=== PATIENT | male | born 1970 | race Caucasian/White ===

== ENCOUNTER 2016-10-13 18:50 | Emergency (ER) | payer MEDICAID ==
[~2016-10-13] VITALS: Ht 162.6 cm; Wt 55.0 kg
[2016-10-13 18:53] VITALS: Ht 162.6 cm; Wt 55.0 kg
--- NOTE | 2016-10-13 20:29 | ERD ---
ER Documentation Chief Complaint Date/Time DATE: 10/13/16 TIME: 20:21 Chief Complaint ABD pain and diarrhea since yesterday HPI This pleasant 46-year-old male patient presents to emergency department today with 1 day history of diarrhea and abdominal pain. Diarrhea 15, patient reports abdominal pain is around his umbilical cord. Reports cramping and vomiting 1. Patient states symptoms started yesterday after eating out for a local. States that he ate by himself is unaware of anybody else has been sick. Patient denies fever, chills, blood in stool. Hematuria, or back pain. Patient states he has been able to tolerate fluids, has no appetite. ROS All systems reviewed and are negative except as per history of present illness. Medications Home Meds Active Scripts Ranitidine Hcl* (Zantac*) 150 Mg Tablet, 150 MG PO BID Y for EPIGASTRIC PAIN, # 30 TAB Prov:MEGHANN,REJI 10/13/16 Loperamide Hcl* (Imodium*) 2 Mg Capsule, 2 MG PO .AFTER EA LOOSE BM Y for DIARRHEA, #10 TAB Prov:MEGHANN,REJI 10/13/16 PMhx/Soc History of Surgery: No Anesthesia Reaction: No Hx Neurological Disorder: No Hx Respiratory Disorders: No Hx Cardiac Disorders: No Hx Psychiatric Problems: No Hx Miscellaneous Medical Probl: No (DENIES MEDICAL AND SURGICAL HX) Hx Alcohol Use: Yes Hx Substance Use: No Hx Tobacco Use: No Smoking Status: Never smoker Physical Exam Vitals Vital Signs Date Time Temp Pulse Resp B/P Pulse Ox O2 Delivery O2 Flow Rate FiO2 10/13/16 18:53 100.2 99 18 122/73 100 Vitals stable, triage notes reviewed Physical Exam Const: No acute distress Head: Atraumatic Eyes: Normal Conjunctiva, no jaundice, PERRLA, EOMI ENT: Normal External Ears, Nose and Mouth. Mucous membranes moist Neck: Resp: Cardio: Abd: Abdomen symmetric, soft, periumbilical tenderness, Guzman sign negative , CVA tenderness negative. Psoas sign negative. Skin: No petechiae or rashes Back: No midline or flank tenderness Ext: No cyanosis, or edema Neur: Awake and alert Psych: Normal Mood and Affect Procedures/MDM This 46-year-old male patient presents to emergency department with 1 day history of vomiting and diarrhea. Patient reports diarrhea 15, vomiting once. Symptoms started after eating [employer]. Acute bacterial infection is not suspected at this time, urinary tract infection or bowel obstruction is not suspected, patient's history and physical exam do not support diagnosis. High suspicion for food poisoning. I feel patient can be monitored in the outpatient setting, treated with Imodium, Pepcid, and liquid diet advance as tolerated, follow-up with primary care physician, return to emergency department in 24 hours if symptoms do not decrease from 15 diarrhea stools in 24 hours period. I feel the patient is stable for discharge at this time. I have discussed results, examination findings, the treatment plan with the patient and family present prior to discharge. Indications for emergent reevaluation, side effects of medication were also discussed. All questions were answered. Patient verbalizes understanding and agrees with plan of care. Departure Diagnosis: Primary Impression: Gastroenteritis Condition: Good Patient Instructions: Food Poisoning Or Gastroenteritis (6Y-Adult) Additional Instructions: Thank you for for coming to [facility] for your care today. Please ask your nurse or provider if you have questions about your care today and do not leave until all your questions have been answered. Please use any medications given as directed and follow-up with your doctor (or the doctor you were referred to) in the next 2-3 days. If you do not have a primary care doctor you may follow up at the [facility] (listed below). You may also use motrin and tylenol as needed for fever and/or pain unless instructed otherwise by your provider or nurse. Indications for more urgent follow-up have been discussed, but you may return to the Emergency Department at ANY time for any worrisome or worsening symptoms. If you have abdominal pain, please know that no test or exam you received is perfect and you should follow up within 8 hours for continued pain. If you had any imaging studies today, such as an X-Ray or CT Scan, these studies will be reviewed later by a radiologist. You will be called if there are important findings that were not identified today, so make sure the contact information you provided at registration is correct. If you received any narcotic pain control medicine today, such as Vicodin, Morphine or Dilaudid, your coordination and judgment may be affected for a number of hours. Please do not drive or operate heavy machinery, and you may want someone to assist you at home. If you were given a prescription for narcotic medication, be aware that it is very addictive- use sparingly and only if necessary. REJI ZAVALETA Oct 13, 2016 20:29
[2016-10-13] MEDS ORDERED: RANI150T9 PO (20:31)
[2016-10-13] MEDS ORDERED: LOPE2CAP PO (20:31)
[2016-10-13] MEDS ORDERED: LIDOCAINE/MYLANTA 40 ML BTL PO ONE (21:00)
== END 2016-10-13 21:03 | disposition home or self-care (01) ==
LOC: FTE 18:50
DX: K52.9 Noninfective gastroenteritis and colitis, unspecified (principal)
CPT/HCPCS: 99283

== ENCOUNTER 2018-03-20 16:55 | Emergency (ER) | END 2018-03-20 20:48 | disposition home or self-care (01) ==

== ENCOUNTER 2018-06-18 20:15 | Emergency (ER) | END 2018-06-19 03:40 | disposition home or self-care (01) ==